=== PATIENT | male | born 1945 | race Caucasian/White ===

== ENCOUNTER 2019-11-03 17:21 | Inpatient (IN) | payer MEDICARE, BC ==
--- NOTE | 2019-11-03 17:51 | ED ---
General Adult HPI - General Stated complaint: COPD Time Seen by Provider: 11/03/19 17:28 - History of Present Illness Initial comments: Dictation was produced using [employer] dictation software. please excuse any grammatical, word or spelling errors. Chief Complaint: 74-year-old male sent in from [place] for COPD exacerbation and abnormal cardiac rhythm. History of Present Illness: 74-year-old male who was sent in from [facility] via private vehicle. Patient initially presented to [place] for cough, respiratory distress. He completed a course of prednisone therapy prescribed by his primary care doctor. Today his symptoms got worse so she went to the emergency department. Patient was evaluated there found to be mildly hypoxic and dyspneic. He was given treatment for COPD with improvement. He had an EKG during that time which was consistent with atrial flutter. Patient does have history of COPD and sees a grease man for this. His grease man is Dr. Hernández. He was directed to our facility by emergency medicine doctor at [place] for intensive steroid therapy and continuous breathing treatments. Patient states she feels significantly improved since being at [place]. The ROS documented in this emergency department record has been reviewed and confirmed by me. Those systems with pertinent positive or negative responses have been documented in the HPI. All other systems are other negative and/or noncontributory. PHYSICAL EXAM: General Impression: Alert and oriented x3, not in acute distress HEENT: Normocephalic atraumatic, extra-ocular movements intact, pupils equal and reactive to light bilaterally, mucous membranes moist. Cardiovascular: Irregular rhythm Chest: Mild lung wheezing Abdomen: Bowel sounds present, abdomen soft, non-tender, non-distended, no organomegaly Musculoskeletal: Pulses present and equal in all extremities, no peripheral edema Motor: no focal deficits noted Neurological: CN II-XII grossly intact, no focal motor or sensory deficits noted Skin: Intact with no visualized rashes Psych: Normal affect and mood ED course: 74 y Old male transferred from [place] for COPD exacerbation. Vital signs upon arrival are within acceptable limits. Patient had irregular rhythm on loan counselor. EKG was concerning for multifocal atrial tachycardia. Patient will be admitted for COPD exacerbation. Chest she doctor dictation was reviewed. Pending discussion Dr. Kendrick for admission. Pulmonology will be on consult. EKG interpretation: Ventricular rate 3, sinus tachycardia,. 142, QRS 60, QTC 474. No UT prolongation, no QTC prolongation, no ST or T-wave changes noted. . Overall, this EKG is unremarkable Review of Systems ROS Statement: Those systems with pertinent positive or pertinent negative responses have been documented in the HPI. ROS Other: All systems not noted in ROS Statement are negative. Disposition Clinical Impression: COPD (chronic obstructive pulmonary disease) Disposition: ADMITTED IP TO THIS HOSP Condition: Fair Referrals: Bala Bales MD [Primary Care Provider] - 1-2 days Decision Time: 17:51
[2019-11-03] MEDS ORDERED: HEPARIN SODIUM,PORCINE 5,000 UNIT/ML 1 ML VIAL IV PRN (18:43)
[2019-11-03] MEDS ORDERED: HEPARIN SODIUM,PORCINE 5,000 UNIT/ML 1 ML VIAL IV ONE (18:43)
[2019-11-03] MEDS ORDERED: DILTIAZEM 125 MG in SODIUM CHLORIDE 0.9% 100 ML IV SCH (18:45)
[2019-11-03] MEDS ORDERED: HEPARIN SOD,PORK IN 0.45% NACL 25,000 UNIT in 0.45% NACL 1 250ML.BAG IV SCH (18:45)
[2019-11-03] MEDS ORDERED: ETOMIDATE 2 MG/ML 10 ML VIAL IVP STA (18:49)
[2019-11-03] MEDS: IPRATROPIUM-ALBUTEROL 3 ML NEB INHALATION PRN (20:24)
[2019-11-04 00:02] LABS: African American GFR (CKD) >90 (>60 ml/min/1.73 sqM); Anion Gap 4 mmol/L; Blood Urea Nitrogen 25 mg/dL (9-20); Calcium 7.8 mg/dL (8.4-10.2); Carbon Dioxide 33 mmol/L (22-30); Chloride 99 mmol/L (98-107); Glucose 366 mg/dL (74-99); Non-African American GFR(CKD) 86 (>60 ml/min/1.73 sqM); Sodium 136 mmol/L (137-145)
[2019-11-04 00:19] LABS: T4, Free (Free Thyroxine) 1.29 ng/dL (0.78-2.19)
[2019-11-04] MEDS ORDERED: ASPIRIN 81 MG PO SCH (09:00)
[2019-11-04] MEDS ORDERED: predniSONE 20 MG TAB PO SCH (09:00)
[2019-11-04] MEDS: ATORVASTATIN 40 MG TAB PO SCH (11:17)
[2019-11-04] MEDS: CARVEDILOL 6.25 MG TAB PO SCH (11:17)
[2019-11-04] MEDS: EZETIMIBE 10 MG TAB PO SCH (11:17)
[2019-11-04] MEDS: LISINOPRIL 5 MG TAB PO SCH (11:17)
[2019-11-04] MEDS: APIXABAN 5 MG TAB PO SCH ×2 (11:17→20:51)
[2019-11-04] MEDS: CLOPIDOGREL 75 MG TAB PO SCH (11:17)
[2019-11-04] MEDS: TORSEMIDE 20 MG TAB PO SCH (11:17)
[2019-11-04] MEDS: NIACIN TR 500 MG CAPLET PO SCH (11:18)
--- NOTE | 2019-11-04 11:55 | P.CRDCN ---
History of Present Illness History of present illness: HISTORY OF PRESENTING ILLNESS This is a pleasant 74-year-old male past medical history significant for peripheral vascular disease with bilateral carotid stenosis status post stent placements, stenting of bilateral lower extremities and mild nonobstructive disease in the coronary arteries. 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 Exact details unavailable. He also has COPD, dyslipidemia and former nicotine depende nce. We have been asked to see in consultation for new-onset atrial fibrillation. EKG on arrival reveals atrial fibrillation with rapid ventricular response. He has spontaneous he converted to sinus mechanism early this morning. He is seen and examined resting comfortably in bed in no acute dist ress. He denies ever having felt any palpitations, chest pain or dizziness. He states he initially presented to the hospital secondary to persistent cough. He has followed with his primary care physician in the office last week and was initiated on antibiotics and oral steroids. He was showing no real improvement and was concerned he was developing pneumonia. Current daily cardiac medications include aspirin 162 mg daily, atorvastatin 40 mg daily, carvedilol 6.25 mg daily, Plavix 75 mg daily, Zetia 10 mg daily, ramipril 1.25 mg daily and torsemide 20 mg daily. Laboratory data reviewed, sodium 136, potassium 4.0, creatinine 0.84. REVIEW OF SYSTEMS At the time of my exam: CONSTITUTIONAL: Denies fever or chills. CARDIOVASCULAR: Denies chest pain, shortness of breath, orthopnea, PND or palpitations. RESPIRATORY: Complains of cough. GASTROINTESTINAL: Denies abdominal pain, diarrhea, constipation, nausea or vomiting. MUSCULOSKELETAL: Denies myalgias. NEUROLOGIC: Denies numbness, tingling or weakness. ENDOCRINE: Denies fatigue, weight change, polydipsia or polyurina. GENITOURINARY: Denies burning, hematuria or urgency with micturation. HEMATOLOGIC: Denies history of anemia or bleeding. PHYSICAL EXAMINATION Blood pressure 119/55 heart rate 81 afebrile and maintaining oxygen saturation on room air. CONSTITUTIONAL: No apparent distress. HEENT: Head is normocephalic. Pupils are equal, round. Sclerae anicteric. Mucous membranes of the mouth are moist. No JVD. No carotid bruit. CHEST EXAMINATION: Lungs are clear to auscultation. No chest wall tenderness is noted on palpation or with deep breathing. Diminished bilaterally. HEART EXAMINATION: Regular rate and rhythm. S1, S2 heard. No murmurs, gallops or rub. ABDOMEN: Soft, nontender. Positive bowel sounds. EXTREMITIES: 2+ peripheral pulses, no lower extremity edema and no calf tenderness. NEUROLOGIC EXAMINATION: Patient is awake, alert and oriented x3. ASSESSMENT New onset paroxysmal atrial fibrillation with rapid ventricular response. Spontaneous he converted to sinus mechanism. COPD Hypertension Dyslipidemia History of nonobstructive coronary artery disease per the patient, exact details unavailable Peripheral vascular disease status post stent placement bilateral lower extremities and carotids Former nicotine dependence PLAN Discontinue heparin infusion and initiate Eliquis 5 mg twice a day for thrombo embolic protection. Discontinue aspirin and continue Plavix. Obtain 2-D echocardiogram and Doppler study to assess cardiac structure and function. Thank you kindly for this consultation. Nurse Practitioner note has been reviewed, I agree with a documented findings and plan of care. Patient was seen and examined. Past Medical History Past Medical History: COPD, Hyperlipidemia, Prostate Disorder Additional Past Medical History / Comment(s): pvd History of Any Multi-Drug Resistant Organisms: None Reported Past Surgical History: Joint Replacement Additional Past Surgical History / Comment(s): carotids stents in legs Past Psychological History: No Psychological Hx Reported Smoking Status: Former smoker Past Alcohol Use History: Occasional Past Drug Use History: None Reported Medications and Allergies Home Medications Medication Instructions Recorded Confirmed Type Aspirin EC [Ecotrin Low Dose] 162 mg PO DAILY 11/03/19 11/03/19 History Atorvastatin Calcium [Lipitor] 40 mg PO DAILY 11/03/19 11/03/19 History Budesonide [Pulmicort] 0.5 mg INHALATION RT-BID 11/03/19 11/03/19 History Carvedilol [Coreg] 6.25 mg PO DAILY 11/03/19 11/03/19 History Clopidogrel Bisulfate [Plavix] 75 mg PO DAILY 11/03/19 11/03/19 History Ezetimibe [Zetia] 10 mg PO DAILY 11/03/19 11/03/19 History Multivitamins, Thera [Multivitamin 1 tab PO DAILY 11/03/19 11/03/19 History (formulary)] Niacin [Niacin ER] 2,000 mg PO DAILY 11/03/19 11/03/19 History Omeprazole [PriLOSEC] 40 mg PO DAILY 11/03/19 11/03/19 History Ramipril [Altace] 1.25 mg PO DAILY 11/03/19 11/03/19 History Torsemide [Demadex] 20 mg PO DAILY 11/03/19 11/03/19 History predniSONE [Deltasone] 20 mg PO BID 11/03/19 11/03/19 History Allergies Allergy/AdvReac Type Severity Reaction Status Date / Time No Known Allergies Allergy Verified 11/03/19 18:16 Physical Exam Vitals: Vital Signs Temp Pulse Pulse Resp BP BP Pulse Ox 11/04/19 08:40 98.2 F 81 20 119/55 97 11/04/19 04:00 78 16 103/60 93 L 11/04/19 00:00 85 16 91/78 94 L 11/03/19 20:40 92 11/03/19 20:25 98 92 L 11/03/19 20:00 96.8 F L 95 20 123/57 98 11/03/19 19:51 104 H 20 132/59 96 11/03/19 19:45 96 20 96/57 96 11/03/19 19:30 87 20 123/71 98 11/03/19 19:28 89 18 123/79 96 11/03/19 19:11 142 H 163 H 92/58 96 11/03/19 19:10 138 H 18 98/52 97 11/03/19 19:03 147 H 18 75/61 95 11/03/19 18:04 93 11/03/19 17:31 98.7 F 143 H 20 106/59 94 L Intake and Output 11/03/19 11/04/19 11/04/19 22:59 06:59 14:59 Intake Total 328.139 230 Output Total 200 Balance -200 328.139 230 Intake: Intake, IV Titration 88.139 Amount Diltiazem 125 mg In 19.417 Sodium Chloride 0.9% 100 ml @ 5 MG/HR 5 mls/hr IV .Q24H [facility] Rx#:[id number] Heparin Sod,Pork in 0.45% 68.722 NaCl 25,000 unit In 0.45 % NaCl 1 250ml.bag @ 12 UNITS/KG/HR 8.165 mls/hr IV .Q24H [facility] Rx#: [id number] Oral 240 230 Output: Urine 200 Other: Weight 68.039 kg 77.3 kg Results 11/03/19 23:36 Coagulation 11/04/19 Range/Units 03:07 APTT 127.8 H* (22.0-30.0) sec Comprehensive Metabolic Panel 11/03/19 Range/Units 23:36 Sodium 136 L (137-145) mmol/L Potassium 4.0 (3.5-5.1) mmol/L Chloride 99 (98-107) mmol/L Carbon Dioxide 33 H (22-30) mmol/L BUN 25 H (9-20) mg/dL Creatinine 0.84 (0.66-1.25) mg/dL Glucose 366 H (74-99) mg/dL Calcium 7.8 L (8.4-10.2) mg/dL Current Medications Generic Name Dose Route Start Last Admin Trade Name Freq PRN Reason Stop Dose Admin Albuterol/Ipratropium 3 ml 11/03/19 17:51 11/03/19 20:24 Duoneb 0.5 Mg-3 Mg/3 Ml Soln INHALATION 3 ml RT-Q4H PRN Administration Shortness Of Breath Or Wheezing Aspirin 162 mg 11/04/19 09:00 Aspirin PO DAILY [facility] Atorvastatin Calcium 40 mg 11/04/19 09:00 Lipitor PO DAILY [facility] Budesonide 0.5 mg 11/04/19 20:00 Pulmicort INHALATION RT-BID [facility] Carvedilol 6.25 mg 11/04/19 09:00 Coreg PO AC-BRKFST [facility] Clopidogrel Bisulfate 75 mg 11/04/19 09:00 Plavix PO DAILY [facility] Ezetimibe 10 mg 11/04/19 09:00 Zetia PO DAILY [facility] Heparin Sodium (Porcine) 0 unit 11/03/19 18:43 Heparin IV PER PROTOCOL PRN Low PTT Protocol Heparin Sodium/Sodium Chloride 250 mls @ 8.165 mls/hr 11/03/19 18:45 11/04/19 05:36 25,000 unit/ Sodium Chloride IV 9 units/kg/hr .Q24H [facility] 6.124 mls/hr Titration Protocol 12 UNITS/KG/HR Lisinopril 5 mg 11/04/19 09:00 Zestril PO DAILY [facility] Niacin 2,000 mg 11/04/19 09:00 Niacin Tr PO DAILY [facility] Pantoprazole Sodium 40 mg 11/04/19 09:00 Protonix PO AC-BRKFST [facility] Prednisone 20 mg 11/04/19 21:00 PO BID [facility] Torsemide 20 mg 11/04/19 09:00 Demadex PO DAILY [facility] Intake and Output 11/03/19 11/04/19 11/04/19 22:59 06:59 14:59 Intake Total 328.139 230 Output Total 200 Balance -200 328.139 230 Intake: Intake, IV Titration 88.139 Amount Diltiazem 125 mg In 19.417 Sodium Chloride 0.9% 100 ml @ 5 MG/HR 5 mls/hr IV .Q24H [facility] Rx#:[id number] Heparin Sod,Pork in 0.45% 68.722 NaCl 25,000 unit In 0.45 % NaCl 1 250ml.bag @ 12 UNITS/KG/HR 8.165 mls/hr IV .Q24H [facility] Rx#: [id number] Oral 240 230 Output: Urine 200 Other: Weight 68.039 kg 77.3 kg 11/03/19 23:36
[2019-11-04] MEDS: PANTOPRAZOLE 40 MG TABLET PO SCH (16:47)
--- NOTE | 2019-11-04 19:46 | PN ---
PROGRESS NOTE CHIEF COMPLAINT: Difficulty breathing. HISTORY OF PRESENT ILLNESS: This gentleman is breathing a little bit better today. Blood sugars are quite elevated. He still has an irregular pulse. PHYSICAL EXAMINATION: Breath sounds are still tight and wheezy and congested with inspiratory and expiratory wheezing and scattered rales and rhonchi. Cardiac exam is unchanged. Abdomen is soft, nontender. Extremities: Normal. IMPRESSION: 1. Exacerbation of chronic obstructive pulmonary disease. 2. Upper respiratory infection. 3. Tachyarrhythmia. 4. Peripheral vascular occlusive disease. 5. Diabetes. PLAN: Continue with current respiratory program. MMODL / IJN: [id number] /
--- NOTE | 2019-11-04 20:31 | HP ---
HISTORY AND PHYSICAL CHIEF COMPLAINT: Difficulty breathing. HISTORY OF PRESENT ILLNESS: This is the first known admission for this 74-year-old white male who has COPD. When he presented to the emergency room with shortness of breath he was also found to have atrial fibrillation or atrial tachycardia with RVR. His difficulties started with a URI and he became progressively more short of breath. At home he is on Eliquis, Lipitor, Pulmicort, carvedilol, clopidogrel, Amidate, acetamide, DuoNeb, lisinopril, niacin, Protonix, prednisone 20 mg b.i.d., and torsemide. Laboratory studies in the emergency room revealed blood sugar of 366. He used to smoke but he stopped about 12 years ago. REVIEW OF SYSTEMS: He has had no headaches, neurologic problems, hemoptysis, other heart disease, including angina, infarctions, congestive heart failure, etc. He has had no abdominal pain, no nausea, no vomiting, melena, hematochezia, renal failure, dysuria, frequency, urgency, etc. Past medical history, family history, personal and social histories are otherwise unremarkable. THE PATIENT IS NOT ALLERGIC TO ANY MEDICATIONS. He has had both knees replaced and he has had peripheral vascular problems with stents placed in both legs and in his carotid system. PHYSICAL EXAMINATION: Blood pressure 106/57, pulse 77, respirations 36, and he is afebrile. In general he appeared to be in some respiratory distress. Skin color is normal. Skin is warm and dry. Lymph nodes are not enlarged. Head, ears, eyes, nose, mouth, and throat were normal. Neck veins are not distended. Thyroid is not enlarged. Chest demonstrates very poor breath sounds with increased AP diameter. There is inspiratory wheezing and prolonged expiratory phase. There are scattered rales throughout. Cardiac exam demonstrates an irregularly-irregular rhythm. There are no murmurs or extra sounds. The abdomen is soft, there are no masses or visceromegaly. The extremities are normal. Neurologically he is intact. ADMITTING DIAGNOSES: 1. Exacerbation of chronic obstructive pulmonary disease. 2. Upper respiratory infection. 3. Atrial arrhythmia. 4. Type 2 diabetes mellitus. 5. Peripheral vascular occlusive disease. PLAN: 1. Bed rest. 2. IV fluids. 3. Updrafts. 4. IV and oral steroids. 5. Manage blood sugars. 6. Pulmonology consult. MMODL / IJN: [id number] /
[2019-11-04] MEDS: predniSONE 20 MG TAB PO SCH (20:51)
[2019-11-04] MEDS: BUDESONIDE 0.5 MG/2 ML NEBU INHALATION SCH (20:53)
--- NOTE | 2019-11-05 00:22 | P.CNPUL ---
History of Present Illness Consult date: 11/04/19 Reason for consult: dyspnea, cough, COPD Chief complaint: Shortness of breath cough History of present illness: This is a 74-year-old male from [place] patient has been having ongoing cough congestion and respiratory distress she was started on oral prednisone by primary care provider without any significant relief came to emergency department has been evaluated and now admitted into the hospital, patient also h ave a significant history of peripheral vascular disease status post bilateral carotid artery stent placement and stenting of lower extremities as well, on arrival patient was noted to have new onset atrial fibrillation with rapid ventricular response converted back to sinus is a, patient has been off of heparin has been started on oral requests also on breathing treatments along with oral prednisone Review of Systems All systems: negative Past Medical History Past Medical History: COPD, Hyperlipidemia, Prostate Disorder Additional Past Medical History / Comment(s): pvd History of Any Multi-Drug Resistant Organisms: None Reported Past Surgical History: Joint Replacement Additional Past Surgical History / Comment(s): carotids stents in legs Past Psychological History: No Psychological Hx Reported Smoking Status: Former smoker Past Alcohol Use History: Occasional Past Drug Use History: None Reported Medications and Allergies Home Medications Medication Instructions Recorded Confirmed Type Aspirin EC [Ecotrin Low Dose] 162 mg PO DAILY 11/03/19 11/03/19 History Atorvastatin Calcium [Lipitor] 40 mg PO DAILY 11/03/19 11/03/19 History Budesonide [Pulmicort] 0.5 mg INHALATION RT-BID 11/03/19 11/03/19 History Carvedilol [Coreg] 6.25 mg PO DAILY 11/03/19 11/03/19 History Clopidogrel Bisulfate [Plavix] 75 mg PO DAILY 11/03/19 11/03/19 History Ezetimibe [Zetia] 10 mg PO DAILY 11/03/19 11/03/19 History Multivitamins, Thera [Multivitamin 1 tab PO DAILY 11/03/19 11/03/19 History (formulary)] Niacin [Niacin ER] 2,000 mg PO DAILY 11/03/19 11/03/19 History Omeprazole [PriLOSEC] 40 mg PO DAILY 11/03/19 11/03/19 History Ramipril [Altace] 1.25 mg PO DAILY 11/03/19 11/03/19 History Torsemide [Demadex] 20 mg PO DAILY 11/03/19 11/03/19 History predniSONE [Deltasone] 20 mg PO BID 11/03/19 11/03/19 History Allergies Allergy/AdvReac Type Severity Reaction Status Date / Time No Known Allergies Allergy Verified 11/03/19 18:16 Physical Exam Vitals: Vital Signs Temp Pulse Pulse Resp BP Pulse Ox 11/04/19 21:03 72 11/04/19 20:53 72 11/04/19 20:00 76 16 106/58 95 11/04/19 16:58 98.4 F 69 16 104/51 95 11/04/19 11:53 98.1 F 77 18 106/57 97 11/04/19 08:40 98.2 F 81 20 119/55 97 11/04/19 04:00 78 16 103/60 93 L 11/04/19 00:00 85 16 91/78 94 L Intake and Output 11/04/19 11/04/19 11/05/19 14:59 22:59 06:59 Intake Total 460 Output Total 800 Balance 460 -800 Intake: Oral 460 Output: Urine 800 Other: # Voids 2 - Constitutional General appearance: average body habitus, cooperative, disheveled, mild distress - EENT Eyes: EOMI, PERRLA Ears: bilateral: normal - Neck Neck: normal ROM Carotids: bilateral: upstroke normal - Respiratory Respiratory: bilateral: CTA, diminished - Cardiovascular Rhythm: regular Heart sounds: normal: S1, S2 - Gastrointestinal General gastrointestinal: normal bowel sounds - Neurologic Neurologic: CNII-XII intact - Musculoskeletal Musculoskeletal: gait normal, generalized weakness, strength equal bilaterally - Psychiatric Psychiatric: A&O x's 3, appropriate affect, intact judgment & insight Results - Laboratory Findings CBC and BMP: 11/03/19 23:36 Abnormal lab findings: Abnormal Labs 11/03/19 11/04/19 23:36 03:07 APTT 127.8 H* Sodium 136 L Carbon Dioxide 33 H BUN 25 H Glucose 366 H Calcium 7.8 L Assessment and Plan Assessment: Acute COPD exacerbation Peripheral arterial disease Extensive history of smoking and nicotine use Dyslipidemia hypertension hypertensive cardiovascular disease Atrial fibrillation with rapid ventricular response now back to sinus rhythm Plan: Continue breathing treatments Supplemental oxygen Oral steroids Obtain chest x-ray Further recommendations pending plan of care as per clinical response of the pa tient Time with Patient: Greater than 30
[2019-11-05] MEDS: PANTOPRAZOLE 40 MG TABLET PO SCH (06:48)
[2019-11-05] MEDS: CARVEDILOL 6.25 MG TAB PO SCH (06:48)
[2019-11-05] MEDS: BUDESONIDE 0.5 MG/2 ML NEBU INHALATION SCH (09:25)
[2019-11-05] MEDS: TORSEMIDE 20 MG TAB PO SCH (09:26)
[2019-11-05] MEDS: NIACIN TR 500 MG CAPLET PO SCH (09:26)
[2019-11-05] MEDS: EZETIMIBE 10 MG TAB PO SCH (09:26)
[2019-11-05] MEDS: ATORVASTATIN 40 MG TAB PO SCH (09:28)
[2019-11-05] MEDS: predniSONE 20 MG TAB PO SCH (09:28)
[2019-11-05] MEDS: CLOPIDOGREL 75 MG TAB PO SCH (09:28)
[2019-11-05] MEDS: LISINOPRIL 5 MG TAB PO SCH (09:29)
[2019-11-05] MEDS: APIXABAN 5 MG TAB PO SCH (09:29)
[2019-11-05 10:12] VITALS: RESP 18
--- NOTE | 2019-11-05 10:12 | ECHOF ---
Referral Reason:New Afib MEASUREMENTS -------- HEIGHT: 162.6 cm WEIGHT: 78.0 kg BP: 122/71 RVIDd: 3.9 cm (< 3.3) IVSd: 0.9 cm (0.6 - 1.1) LVIDd: 3.9 cm (3.9 - 5.3) LVPWd: 0.8 cm (0.6 - 1.1) IVSs: 1.5 cm LVIDs: 2.7 cm LVPWs: 1.4 cm LA Diam: 3.6 cm (2.7 - 3.8) LAESV Index (A-L): 22.29 ml/m MV EXCURSION: 23.948 mm (> 18.000) MV EF SLOPE: 76 mm/s (70 - 150) EPSS: 0.3 cm MV E Henry: 0.80 m/s MV DecT: 189 ms MV A Henry: 0.95 m/s MV E/A Ratio: 0.84 RAP: 5.00 mmHg RVSP: 21.33 mmHg FINDINGS -------- Sinus rhythm. This was a technically good study. LV size, wall thickness and systolic function are normal, with an EF greater than 55%. The left bekah tricular size is normal. The diastolic filling pattern is normal for the age of the patient 10.17. The right ventricle is normal in size. The left atrial size is normal. Normal LA size by volume 22+/-6 ml/m2. The right atrial size is normal. The aortic valve is trileaflet, and appears structurally normal. No aortic stenosis or regurgitation. Mild mitral annular calcification present. Mild mitral regurgitation is present. Mild tricuspid regurgitation present. Right ventricular systolic pressure is normal at < 35 mmHg. There is no evidence of pulmonary hypertension. There is no pulmonic regurgitation present. The aortic root size is normal. There is no pericardial effusion. CONCLUSIONS -------- 1. Sinus rhythm. 2. This was a technically good study. 3. LV size, wall thickness and systolic function are normal, with an EF greater than 55%. 4. The left ventricular size is normal. 5. The diastolic filling pattern is normal for the age of the patient 10.17 6. The right ventricle is normal in size. 7. The left atrial size is normal. 8. Normal LA size by volume 22+/-6 ml/m2. 9. The right atrial size is normal. 10. The aortic valve is trileaflet, and appears structurally normal. No aortic stenosis or regurgitat ion. 11. Mild mitral annular calcification present. 12. Mild mitral regurgitation is present. 13. Mild tricuspid regurgitation present. 14. Right ventricular systolic pressure is normal at < 35 mmHg. 15. There is no evidence of pulmonary hypertension. 16. There is no pulmonic regurgitation present. 17. The aortic root size is normal. 18. There is no pericardial effusion. MACHINE CHOCOLATE MOLDER: Amanda Chavez RDCS
[2019-11-05 11:07] LABS: ALT 62 U/L (4-49); AST 53 U/L (17-59); African American GFR (CKD) >90 (>60 ml/min/1.73 sqM); Albumin 3.5 g/dL (3.5-5.0); Alkaline Phosphatase 111 U/L (38-126); Anion Gap 3 mmol/L; Blood Urea Nitrogen 36 mg/dL (9-20); Calcium 9.2 mg/dL (8.4-10.2); Carbon Dioxide 38 mmol/L (22-30); Chloride 98 mmol/L (98-107); Glucose 441 mg/dL (74-99); Non-African American GFR(CKD) 85 (>60 ml/min/1.73 sqM); Potassium 4.3 mmol/L (3.5-5.1); Sodium 139 mmol/L (137-145); Total Bilirubin 0.7 mg/dL (0.2-1.3); Total Protein 5.8 g/dL (6.3-8.2)
[2019-11-05 11:28] LABS: Anisocytosis Slight; Basophils # (A) 0.1 k/uL (0-0.2); Basophils % (A) 1 %; Eosinophils % (A) 0 %; HCT 39.9 % (39.0-53.0); HGB 11.3 gm/dL (13.0-17.5); Hypochromasia Marked; Lymphocytes # (A) 0.2 k/uL (1.0-4.8); Lymphocytes % (A) 2 %; MCH 26.7 pg (25.0-35.0); MCHC 28.3 g/dL (31.0-37.0); MCV 94.3 fL (80.0-100.0); Macrocytosis Slight; Mean Platelet Volume 7.6; Monocytes # (A) 0.4 k/uL (0-1.0); Monocytes % (A) 4 %; Neutrophils # (A) 9.8 k/uL (1.3-7.7); Neutrophils % (A) 93 %; Platelet Count 155 k/uL (150-450); Poikilocytosis Slight; RBC 4.23 m/uL (4.30-5.90); RDW 18.5 % (11.5-15.5); WBC 10.5 k/uL (3.8-10.6)
[2019-11-05] MEDS: IPRATROPIUM-ALBUTEROL 3 ML NEB INHALATION PRN ×2 (12:54→16:52)
[2019-11-05 13:35] VITALS: BP 100/50; TEMP 97.1
--- NOTE | 2019-11-05 14:18 | XR ---
EXAMINATION TYPE: XR chest 2V DATE OF EXAM: 11/05/2019 COMPARISON: Outside x-ray dated 11/03/2019 TECHNIQUE: PA and lateral views submitted. HISTORY: COPD, shortness of breath FINDINGS: The lungs are clear and there is no pneumothorax, pleural effusion, or focal pneumonia. Hyperinflat ion suggests COPD. Coarsened interstitium noted. Biapical pleural thickening. IMPRESSION: 1. COPD correlate for mild chronic interstitial lung disease.
--- NOTE | 2019-11-05 14:36 | P.PN ---
Subjective Progress Note Date: 11/05/19 This is a pleasant 74-year-old male past medical history significant for peripheral vascular disease with bilateral carotid stenosis status post stent placements, stenting of bilateral lower extremities and mild nonobstructive disease in the coronary arteries. 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 Exact details unavailable. He also has COPD, dyslipidemia and former nicotine dependence. We had been asked to see in consultation for new-onset atrial fibrillation. Patient converted to normal sinus rhythm and continues to be in normal sinus rhythm this morning. He continues to have a cough but does feel significantly better than when he presented here. Blood pressure 100/50, heart rate in the 80s, temperature 97.1, 97% on 2 L of oxygen. Echocardiogram with Doppler study revealed a normal left ventricular systolic function. White blood cell count 10.5, hemoglobin 11.3, platelet count 155. Sodium 139, potassium 4.3, BUN 36, creatinine 0.8. Objective - Vital Signs Vital signs: Vital Signs Temp 97.1 F L 11/05/19 12:00 Pulse 84 11/05/19 13:05 Resp 18 11/05/19 12:00 BP 100/50 11/05/19 12:00 Pulse Ox 97 11/05/19 12:00 Intake & Output 11/04/19 11/05/19 11/05/19 18:59 06:59 18:59 Intake Total 460 540 480 Output Total 800 Balance -340 540 480 Weight 78.2 kg Intake: Oral 460 540 480 Output: Urine 800 Other: # Voids 2 1 - Exam CONSTITUTIONAL: No apparent distress. HEENT: Head is normocephalic. Pupils are equal, round. Sclerae anicteric. Mucous membranes of the mouth are moist. No JVD. No carotid bruit. CHEST EXAMINATION: Lungs reveal scattered coarse rhonchi throughout . Diminished bilaterally. HEART EXAMINATION: Regular rate and rhythm. S1, S2 heard. No murmurs, gallops or rub. ABDOMEN: Soft, nontender. Positive bowel sounds. EXTREMITIES: 2+ peripheral pulses, no lower extremity edema and no calf tenderness. NEUROLOGIC EXAMINATION: Patient is awake, alert and oriented x3. - Labs CBC & Chem 7: 11/05/19 10:31 11/05/19 10:31 Labs: Abnormal Lab Results - Last 24 Hours (Table) 11/05/19 11/05/19 Range/Units 10:31 10:31 RBC 4.23 L (4.30-5.90) m/uL Hgb 11.3 L (13.0-17.5) gm/dL MCHC 28.3 L (31.0-37.0) g/dL RDW 18.5 H (11.5-15.5) % Neutrophils # 9.8 H (1.3-7.7) k/uL Lymphocytes # 0.2 L (1.0-4.8) k/uL Carbon Dioxide 38 H (22-30) mmol/L BUN 36 H (9-20) mg/dL Glucose 441 H (74-99) mg/dL ALT 62 H (4-49) U/L Total Protein 5.8 L (6.3-8.2) g/dL Assessment and Plan Plan: ASSESSMENT and plan #1 New onset paroxysmal atrial fibrillation with rapid ventricular response. Spontaneous he converted to sinus mechanism. #2 COPD exacerbation, possible pneumonia #3 Hypertension #4 Dyslipidemia #5 History of nonobstructive coronary artery disease per the patient, exact details unavailable #6 Peripheral vascular disease status post stent placement bilateral lower extremities and carotids Plan From cardiology's perspective, we'll recommend to continue with current medications. We will follow this patient along with you now on an as needed basis only, please don't hesitate to call with any questions. DNP note has been reviewed, I agree with a documented findings and plan of care. Patient was seen and examined.
[2019-11-05] MEDS ORDERED: LEVOFLOXACIN 500 MG TAB PO SCH (17:00)
[2019-11-05 17:08] VITALS: PULSE 84
--- NOTE | 2019-11-05 19:23 | PN ---
PROGRESS NOTE CHIEF COMPLAINT: Exacerbation of COPD and atrial arrhythmia. HISTORY OF PRESENT ILLNESS: This gentleman is doing much better. Breathing is improving. He is much less short of breath. PHYSICAL EXAMINATION: Chest is improved. He has better breath sounds throughout and there is less wheezing, and fewer rales and rhonchi. The cardiac exam continues to reveal his atrial arrhythmia. Abdomen soft and nontender. The extremities are normal. IMPRESSION: 1. Exacerbation of chronic obstructive pulmonary disease. 2. Atrial arrhythmia. PLAN: Continue current program until he is stable enough to be discharged. MMODL / IJN: [id number] /
[2019-11-05 22:39] LABS: Hemoglobin A1C 6.2 % (4.0-6.0)
--- NOTE | 2019-11-06 00:34 | PN ---
PROGRESS NOTE DATE OF SERVICE: 11/05/2019. He had been hemodynamically stable. He was doing significantly better overall and was back in sinus rhythm. On physical examination, vitals are stable, he is afebrile. His chest reveals decreased breath sounds with prolonged exhalation. Cardiovascular system is S1, S2. Abdomen is soft with no pedal edema. IMPRESSION: 1. Atrial fibrillation with RVR for which he has converted to sinus rhythm. 2. Chronic obstructive pulmonary disease severe, with acute exacerbation. 3. Asthma. At this point in time, agree with discharge planning with close outpatient followup. We will be happy to see him in the next 48 hours at our [place] office. He was counseled regarding his condition and counseled regarding atrial fibrillation and its pathophysiology in the presence of his . All questions were answered. MMODL / IJN: [id number] /
--- NOTE | 2019-11-06 14:21 | DS ---
DISCHARGE SUMMARY DATE OF SERVICE: 11/05/2019 CHIEF COMPLAINT: Difficulty breathing. HISTORY OF PRESENT ILLNESS AND PHYSICAL EXAMINATION: Details of this man's history and physical can be found in the initial workup. LABORATORY STUDIES: While he is in his hospital he had laboratory studies, details of which can be found laboratory section of the chart. COURSE IN HOSPITAL: After admission, he was placed on bedrest and started on intravenous fluids, updrafts and inhaled and IV steroids. Chest improved very quickly. He was seen for his atrial tachycardia, but it was felt he could be discharged. He will go home on his usual activity, diet and medication. He will follow up in the office in several days. FINAL DIAGNOSES: 1. Exacerbation of chronic obstructive pulmonary disease. 2. Supraventricular tachycardia. OPERATIONS: 1. None. CONSULTATIONS: Cardiology. He is improved. MMODL / MARILEEN: [id number] /
== END 2019-11-05 18:00 | disposition home or self-care (01) | DRG 191 ==
LOC: EC 17:21 → 3SCARD 17:51
PROVIDERS: ADMIT Family Medicine; ATTEND Family Medicine
PROC: 5A2204Z Restoration of Cardiac Rhythm, Single (ICD-10-PCS; principal; 2019-11-03)
DX: J44.1 Chronic obstructive pulmonary disease with (acute) exacerbation (principal); I47.1 Supraventricular tachycardia; E11.51 Type 2 diabetes mellitus with diabetic peripheral angiopathy without gangrene; E78.5 Hyperlipidemia, unspecified; I11.9 Hypertensive heart disease without heart failure; I25.10 Atherosclerotic heart disease of native coronary artery without angina pectoris; I48.0 Paroxysmal atrial fibrillation; Z95.820 Peripheral vascular angioplasty status with implants and grafts; Z87.891 Personal history of nicotine dependence; Z79.899 Other long term (current) drug therapy; Z79.82 Long term (current) use of aspirin; Z79.02 Long term (current) use of antithrombotics/antiplatelets; Z79.01 Long term (current) use of anticoagulants
CPT/HCPCS: 71046; 80048; 80053; 83036; 84439; 85025; 85730; 93005; 93306; 94640; 94760; 96365; 96368; 96376; 99284